=== PATIENT | male | born 1960 | race Caucasian/White ===

== ENCOUNTER → 2021-03-23 | Outpatient (CLI) | payer BC ==
[~2021-03-23] MED LIST: ALLOPURINOL 10100 M3 PO; CARVEDILOL12.5 MG PO; LOSARTAN POTASS50 MG PO; MELOXICAM15 MG PO; NORVASC5 MG PO; TYLENOL EXTRA500 MG PO
--- NOTE | 2021-03-23 12:59 | EKG ---
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
== END ==
LOC: PAC 09:54
PROVIDERS: ATTEND Orthopaedic Surgery
DX: Z01.818 Encounter for other preprocedural examination (principal)

== ENCOUNTER → 2021-03-24 | Day surgery (SDC) | payer BC ==
[~2021-03-24] VITALS: Ht 193 cm; Wt 121.1 kg
[2021-03-24 09:00] VITALS: BP 135/85
[2021-03-24 15:45] VITALS: BP 135/85
== END | disposition home or self-care (01) ==
LOC: OR
PROVIDERS: ATTEND Orthopaedic Surgery
DX: M16.11 Unilateral primary osteoarthritis, right hip (principal); I10 Essential (primary) hypertension; J45.909 Unspecified asthma, uncomplicated; M10.9 Gout, unspecified; Z98.890 Other specified postprocedural states; Z79.899 Other long term (current) drug therapy; Z87.891 Personal history of nicotine dependence; Z20.822 Contact with and (suspected) exposure to COVID-19; Z90.49 Acquired absence of other specified parts of digestive tract
CPT/HCPCS: 50010; 50101; 50382; 50414; 50855; 52304; 53078; 53368; 56524; 56527; 56528; 57093; 57095; 57103; 58637; 58959; 62110; 62900; 70005